=== PATIENT | female | born 1980 | race Two or more races ===

== ENCOUNTER 2018-08-12 05:19 | Day surgery (SDC) | payer OTHER ==
[2018-08-10 09:03] VITALS: BMI 21.2
--- NOTE | 2018-08-12 12:07 | HP ---
History & Physical Update - History History: No Change - Physical Physical: No Change - Assessment Assessment: No Change - Plan Plan: No Change (Agree with H&P from 08/10 - plan for LEEP 2/2 cervical dysplasia)
[2018-08-12] MEDS ORDERED: IBUPROFEN 600 MG TABLET (FP) PO PRN (12:12)
[2018-08-12] MEDS ORDERED: ACETAMINOPHEN 325 MG TABLET (FP) PO PRN (12:12)
[2018-08-12] MEDS ORDERED: IBUPROFEN 800 MG/8 ML IJ IVPB PRN (12:12)
[2018-08-12] MEDS ORDERED: LACTATED RINGERS SOLUTION 1,000 ML IV SCH ×2 (12:15→13:30)
[2018-08-12] MEDS ORDERED: MIDAZOLAM HCL 2 MG/2 ML SINGLE DOSE VIAL ONE (12:34)
[2018-08-12] MEDS ORDERED: LIDOCAINE HCL/PF 2% SDV 5ML VIAL ONE (12:43)
[2018-08-12] MEDS ORDERED: PROPOFOL 20 ML ONE (12:43)
[2018-08-12] MEDS ORDERED: KETOROLAC TROMETHAMINE 30 MG/1 ML VIAL ONE (12:43)
[2018-08-12] MEDS ORDERED: PROMETHAZINE HCL 25 MG/1 ML VIAL IVPUSH PRN (13:23)
[2018-08-12] MEDS ORDERED: ONDANSETRON 4 MG/2 ML VIAL IVPUSH PRN (13:23)
[2018-08-12] MEDS ORDERED: oxyCODONE HCL 5 MG TABLET PO PRN (13:23)
--- NOTE | 2018-08-12 13:25 | OP ---
Operative Note - Note: Operative Date: 08/12/18 Pre-Operative Diagnosis: cervical dysplasia Operation: LEEP Post-Operative Diagnosis: Same as Pre-op Surgeon: Jeanne Tyler Anesthesiologist/[employer]NAGER: Nilson Ponce Anesthesia: MAC Estimated Blood Loss (mls): 12 Operative Report Dictated: Yes
[2018-08-12 16:21] VITALS: BP 120/48; PULSE 56; TEMP 98
--- NOTE | 2018-08-12 16:38 | OP ---
DATE OF OPERATION: 08/12/2018 PREOPERATIVE DIAGNOSIS: Cervical dysplasia with atypical squamous cells of undetermined significance; cannot rule out high-grade Pap and cervical intraepithelial neoplasia-1 on colposcopy. PROCEDURE: LEEP. SURGEON: Jeanne Tyler DO ANESTHESIA: MAC, by Nilson Ponce MD. ESTIMATED BLOOD LOSS: 15 mL. SPECIMENS: Removed with cone biopsy. COMPLICATIONS: None. COUNTS: Sponge, needle, and instrument count correct. DISPOSITION: Stable, to PACU. BRIEF HISTORY AND PROCEDURE: Patient is a 37-year-old female who had been seen in the office complaining of a recent abnormal Pap smear showing ASCUS cannot rule out high-grade lesion. 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 The patient was counseled on the options and elected to undergo a LEEP procedure. The patient signed consent for the procedure in the office on August 10, 2018. She was then admitted to [facility] on August 12, 2018, where consents were reconfirmed. The patient was taken back to the operating room, given MAC anesthesia, and placed in the dorsal lithotomy position. A coated speculum was placed inside the vagina and the cervix was easily visualized and coated with Lugol solution. Using a large-loop loupe, a specimen was removed in a single pass and marked at the 12 o'clock position and sent to Pathology for permanent evaluation. The LEEP surgical bed was cauterized with ball cautery until hemostasis was achieved. The Monsel solution was applied. Excellent hemostasis was achieved at the end of the procedure. All instruments were removed from the vagina. The patient awoke from anesthesia in stable condition and is recovering in the PACU at this time. JEANNE TYLER DO /[id number]
--- NOTE | 2018-08-17 14:47 | PATH ---
Surgical Pathology Report Patient Name: ZHOU FRANCISCO [facility]. Rec. #: [id number] /Age/Gender: 1980 (Age: 37) / F Account: [id number] Location: [facility] SURGICAL Taken: 08/12/2018 Received: 08/13/2018 Reported: 08/17/2018 Physicians: Jeanne Tyler M.D. Specimen(s) Received CERVICAL CONE BIOPSY Clinical History HPV cervical dysplasia Final Diagnosis CERVIX, LOOP ELECTROSURGICAL EXCISION PROCEDURE (LEEP)/CONE BIOPSY: CERVICAL SQUAMOUS AND ENDOCERVICAL MUCOSA WITH FOCAL HIGH GRADE SQUAMOUS INTRAEPITHELIAL LESION (CERVICAL INTRAEPITHELIAL NEOPLASIA 2/ MAIA 2) IN 3-6:00 AND 6-9:00 QUADRANTS; AREAS OF LOW GRADE SQUAMOUS INTRAEPITHELIAL LESION ALSO PRESENT. SURGICAL RESECTION MARGINS: NEGATIVE FOR HIGH GRADE DYSPLASIA. TRANSFORMATION ZONE: PRESENT. 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 Proliferative marker, ki-67 utilized to evaluate this case. Electronically Signed Lisbeth Feng M.D. Gross Description Received in formalin labeled "cone biopsy," is a 1.4 x 1.2 x 0.5 cm portion of anterior cervix with a suture marking the 12 o'clock position, per the surgeon. There is a 1.4 x 0.8 x 0.3 cm portion of posterior cervix separately received within the same container. The bases are inked blue and the specimen are serially sectioned. The specimen is entirely submitted in 4 cassettes as follows: 1-12:00 to 3:00 (anterior); 2-3:00 to 6:00 (posterior); 3-6:00 to 9:00 (posterior); 4-9:00 to 12:00 (anterior). /08/13/2018
== END 2018-08-12 16:15 | disposition home or self-care (01) ==
LOC: JASU-SURG 05:19
PROVIDERS: ATTEND Obstetrics & Gynecology
PROC: 0UBC7ZX Excision of Cervix, Via Natural or Artificial Opening, Diagnostic (ICD-10-PCS; principal; 2018-08-12 13:00)
DX: N87.1 Moderate cervical dysplasia (principal)
CPT/HCPCS: 88307-TC; 94760

== ENCOUNTER 2021-07-16 05:00 | Day surgery (SDC) | payer OTHER ==
[2021-07-13 10:02] VITALS: BMI 22.8
[2021-07-16] MEDS ORDERED: PROMETHAZINE HCL 25 MG/1 ML VIAL IVPUSH PRN (09:03)
[2021-07-16] MEDS ORDERED: oxyCODONE HCL 5 MG TABLET PO PRN (09:03)
[2021-07-16] MEDS ORDERED: ONDANSETRON 4 MG/2 ML VIAL IVPUSH PRN (09:03)
[2021-07-16] MEDS ORDERED: LACTATED RINGERS SOLUTION 1,000 ML IV SCH (09:15)
[2021-07-16] MEDS ORDERED: PROPOFOL 20 ML ONE (09:19)
[2021-07-16] MEDS ORDERED: ROCURONIUM BROMIDE 50 MG/5 ML SYRINGE ONE (09:19)
[2021-07-16] MEDS ORDERED: MIDAZOLAM HCL 2 MG/2 ML SINGLE DOSE VIAL ONE (09:19)
[2021-07-16] MEDS ORDERED: GLYCOPYRROLATE 0.2 MG/1 ML VIAL ONE ×2 (09:24→09:58)
[2021-07-16] MEDS ORDERED: LIDOCAINE HCL/PF 2% SDV 5ML VIAL ONE (09:24)
[2021-07-16] MEDS ORDERED: DEXAMETHASONE SOD PHOSPHATE 4 MG/1 ML VIAL ONE (09:38)
[2021-07-16] MEDS ORDERED: KETOROLAC TROMETHAMINE 30 MG/1 ML VIAL ONE (09:39)
[2021-07-16] MEDS ORDERED: NEOSTIGMINE METHYLSULFATE 0.5 MG/ML - 10 ML MDV ONE (09:59)
[2021-07-16] MEDS ORDERED: oxyCODONE HCL 5 MG TABLET ONE (12:29)
[2021-07-16 17:14] VITALS: BP 104/48; PULSE 62; TEMP 97.9
== END 2021-07-16 16:50 | disposition home or self-care (01) ==
LOC: JASU-SURG 05:00
PROVIDERS: ATTEND Obstetrics & Gynecology
PROC: 0UB14ZZ Excision of Left Ovary, Percutaneous Endoscopic Approach (ICD-10-PCS; 2021-07-16)
PROC: 0UT74ZZ Resection of Bilateral Fallopian Tubes, Percutaneous Endoscopic Approach (ICD-10-PCS; principal; 2021-07-16 09:00)
DX: Z30.2 Encounter for sterilization (principal); N83.202 Unspecified ovarian cyst, left side
CPT/HCPCS: 81025; 88302-TC; 88305-TC; 94760